=== PATIENT | female | born 1955 | race Caucasian/White ===

== ENCOUNTER 2020-06-18 05:44 | Emergency (ER) | payer MEDICARE, OTHER ==
[~2020-06-18 05:44] MED LIST: 3IN1 COMMODE XX; ACETAMINOPHEN325 MG PO; ASPIRIN CHEWABL81 MG PO; ATIVAN0.5 MG PO; CARBIDOPA-LEVO1 EAC6 PO; CELEXA20 MG PO; DITROPAN5 MG PO; FEOSOL325 MG PO; FLORANEX TABLE1 EACH PO; MAG-OXIDE 400M400 MG PO; MICON-GUARD 2% TOP; MIRAPEX0.25 MG PO; NAPROSYN375 MG PO; NIFEREX150 MG PO; NORCO 5-325 TA1 EACH PO; OSTERA TABLET1 EACH PO; OXY-IR 5MG5 MG PO; OXYBUTYNIN CHLOR5 M1 PO; OXYCODONE-ACET1 EAC1 PO; PANTOPRAZOLE SO40 MG PO; PERCOCET 5-3251 EACH PO; PREVACID30 M1 PO; SYNTHROID100 MCG PO; SYNTHROID75 MCG PO; XARELTO10 MG PO
[2020-06-18 06:36] LABS: BASOPHIL 0.4 % (0-2); EOSINOPHIL 2.4 % (0-7); HCT 38.8 % (37.0-47.0); HGB 12.5 g/dl (12.5-16.0); MCH 28.2 pg (25.0-31.0); MCHC 32.2 g/dL (32.0-36.0); MCV 87.4 fL (78.0-100.0); MONOCYTE 7.7 % (0-12); MPV 10.2 fL (6.0-9.5); NEUTROPHIL 66.1 % (41-80); NRBC 0; PLT 174 K/uL (150-400); RBC 4.44 M/uL (4.20-5.40); RDW 13.8 % (11.5-14.0); WBC 4.6 K/uL (4.0-10.5)
[2020-06-18 07:12] LABS: ALBUMIN 3.8 g/dL (3.4-5.0); ALKALINE PHOSHATASE 86 U/L (46-116); ALT 13 U/L (14-59); AST 21 U/L (15-37); BILIRUBIN - TOTAL 0.6 mg/dL (0.2-1.0); BUN 29 mg/dL (7-18); BUN/CREAT RATIO (CALC) 34.5 RATIO; CHLORIDE 107 mmol/L (98-107); CO2 (BICARBONATE) 29 mmol/L (21-32); CPK 149 U/L (26-192); CREATININE 0.84 mg/dL (0.51-0.95); GLOBULIN (CALCULATION) 2.9 g/dL; GLUCOSE 104 mg/dL (74-106); TOTAL PROTEIN 6.7 g/dL (6.4-8.2)
[2020-06-18 07:14] LABS: C-REACTIVE PROTEIN < 0.20 mg/dL (<=0.90)
== END 2020-06-18 09:49 | disposition home or self-care (01) ==
LOC: FER 05:44
PROVIDERS: Emergency Medicine Emergency Medical Services
DX: R06.02 Shortness of breath (principal); R20.0 Anesthesia of skin; G20 Parkinson's disease; E03.9 Hypothyroidism, unspecified; M79.662 Pain in left lower leg; M79.661 Pain in right lower leg; Z88.2 Allergy status to sulfonamides; Z79.899 Other long term (current) drug therapy
CPT/HCPCS: 36415; 71045; 80053; 82550; 83605; 84484; 85025; 85379; 86140; 93005; J3360

== ENCOUNTER 2021-02-15 14:11 | Emergency (ER) | payer MEDICARE, OTHER ==
[2021-02-15 17:10] LABS: BASOPHIL 0.6 % (0-2); EOSINOPHIL 1.2 % (0-7); HCT 39.3 % (37.0-47.0); HGB 12.4 g/dl (12.5-16.0); LYMPHOCYTE 16.1 % (15-48); MCH 27.6 pg (25.0-31.0); MCHC 31.6 g/dL (32.0-36.0); MCV 87.3 fL (78.0-100.0); MPV 10.5 fL (6.0-9.5); NEUTROPHIL 74.9 % (41-80); NRBC 0; PLT 168 K/uL (150-400); RDW 13.9 % (11.5-14.0)
[2021-02-15 17:29] LABS: BUN/CREAT RATIO (CALC) 35.8 RATIO; CREATININE 0.53 mg/dL (0.51-0.95); POTASSIUM 3.8 mmol/L (3.5-5.1)
[2021-02-15 18:26] LABS: BILIRUBIN 1+ mg/dL (NEGATIVE); BLOOD NEGATIVE Ery/uL (NEGATIVE); CLARITY CLEAR (CLEAR); COLOR YELLOW (YELLOW); GLUCOSE (U) NORMAL (NORMAL); LEUKOCYTES NEGATIVE Leu/uL (NEGATIVE); NITRITE NEGATIVE (NEGATIVE); PROTEIN TRACE (LOW) mg/dL (NEGATIVE); SPECIFIC GRAVITY >=1.030 (1.001-1.030); UROBILINOGEN 0.2 mg/dL (0.2-1.0)
[2021-02-15] MEDS ORDERED: MEDROL 4MG DOSEP4 MG PO (21:01)
[2021-02-15] MEDS ORDERED: CYCLOBENZAPRINE10 MG PO (21:01)
== END 2021-02-15 21:25 | disposition home or self-care (01) ==
LOC: FER 14:11
PROVIDERS: Nurse Practitioner Family
DX: M25.552 Pain in left hip (principal); R10.32 Left lower quadrant pain; R25.2 Cramp and spasm; G20 Parkinson's disease; Z88.2 Allergy status to sulfonamides
CPT/HCPCS: 36415; 73502; 73552; 80048; 81003; 85025; 96372; 99283; J1100; J1885

== ENCOUNTER 2021-04-04 12:44 | Emergency (ER) | payer MEDICARE, OTHER ==
[~2021-04-04 12:44] MED LIST changes: +CYCLOBENZAPRINE10 MG PO; +MEDROL 4MG DOSEP4 MG PO
[2021-04-04 14:57] LABS: BILIRUBIN NEGATIVE (NEGATIVE); BLOOD NEGATIVE Ery/uL (NEGATIVE); CLARITY CLEAR (CLEAR); COLOR YELLOW (YELLOW); GLUCOSE (U) TRACE mg/dL (NORMAL); LEUKOCYTES NEGATIVE Leu/uL (NEGATIVE); NITRITE NEGATIVE (NEGATIVE); PROTEIN TRACE (LOW) mg/dL (NEGATIVE); SPECIFIC GRAVITY 1.025 (1.001-1.030)
[2021-04-04 21:43] LABS: BASOPHIL 0.2 % (0-2); EOSINOPHIL 0.9 % (0-7); HCT 38.2 % (37.0-47.0); LYMPHOCYTE 14.6 % (15-48); MCH 27.7 pg (25.0-31.0); MCHC 31.4 g/dL (32.0-36.0); MCV 88.2 fL (78.0-100.0); MONOCYTE 8.4 % (0-12); MPV 9.9 fL (6.0-9.5); NEUTROPHIL 75.7 % (41-80); NRBC 0; PLT 152 K/uL (150-400); RBC 4.33 M/uL (4.20-5.40); RDW 14.4 % (11.5-14.0); WBC 4.5 K/uL (4.0-10.5)
[2021-04-04 22:03] LABS: BILIRUBIN - TOTAL 0.8 mg/dL (0.2-1.0); BUN/CREAT RATIO (CALC) 43.1 RATIO; CREATININE 0.51 mg/dL (0.51-0.95); GLOBULIN (CALCULATION) 2.7 g/dL; POTASSIUM 3.7 mmol/L (3.5-5.1); TOTAL PROTEIN 6.7 g/dL (6.4-8.2)
[2021-04-04] MEDS ORDERED: NORCO 5-325 TA1 EACH PO (23:45)
== END 2021-04-05 00:50 | disposition home or self-care (01) ==
LOC: FER 12:44
PROVIDERS: Emergency Medicine; Physician Assistant
DX: S52.514A Nondisplaced fracture of right radial styloid process, initial encounter for closed fracture (principal); R10.32 Left lower quadrant pain; G20 Parkinson's disease; Z53.29 Procedure and treatment not carried out because of patient's decision for other reasons; Z88.2 Allergy status to sulfonamides; Z79.899 Other long term (current) drug therapy; X58.XXXA Exposure to other specified factors, initial encounter; W01.0XXA Fall on same level from slipping, tripping and stumbling without subsequent striking against object, initial encounter
CPT/HCPCS: 36415; 73100; 80053; 81003; 85025

== ENCOUNTER 2021-05-07 20:47 | Emergency (ER) | payer MEDICARE, OTHER ==
[2021-05-07 22:50] LABS: BILIRUBIN NEGATIVE (NEGATIVE); BLOOD NEGATIVE Ery/uL (NEGATIVE); CLARITY CLEAR (CLEAR); COLOR YELLOW (YELLOW); GLUCOSE (U) NORMAL (NORMAL); LEUKOCYTES NEGATIVE Leu/uL (NEGATIVE); NITRITE NEGATIVE (NEGATIVE); PROTEIN NEGATIVE (NEGATIVE); SPECIFIC GRAVITY 1.025 (1.001-1.030); UROBILINOGEN 0.2 mg/dL (0.2-1.0); pH 6.5 (5.0-9.0)
== END 2021-05-08 00:38 | disposition home or self-care (01) ==
LOC: FER 20:47
PROVIDERS: Nurse Practitioner Family
DX: S39.91XA Unspecified injury of abdomen, initial encounter (principal); G20 Parkinson's disease; Z88.2 Allergy status to sulfonamides; X58.XXXA Exposure to other specified factors, initial encounter
CPT/HCPCS: 81003; 99284

== ENCOUNTER 2021-05-18 13:17 | Emergency (ER) | payer MEDICARE, OTHER ==
[2021-05-18 15:44] LABS: BILIRUBIN NEGATIVE (NEGATIVE); BLOOD NEGATIVE Ery/uL (NEGATIVE); CLARITY CLEAR (CLEAR); COLOR YELLOW (YELLOW); GLUCOSE (U) NORMAL (NORMAL); LEUKOCYTES NEGATIVE Leu/uL (NEGATIVE); NITRITE NEGATIVE (NEGATIVE); PROTEIN TRACE (LOW) mg/dL (NEGATIVE); SPECIFIC GRAVITY >=1.030 (1.001-1.030); UROBILINOGEN 0.2 mg/dL (0.2-1.0); pH 5.5 (5.0-9.0)
[2021-05-18 15:57] LABS: BACTERIA TRACE
[2021-05-18] MEDS ORDERED: MACROBID100 MG PO (17:20)
== END 2021-05-18 17:30 | disposition home or self-care (01) ==
LOC: FER 13:17
PROVIDERS: Physician Assistant
DX: R30.0 Dysuria (principal); G20 Parkinson's disease
CPT/HCPCS: 74019; 81001; 87088

== ENCOUNTER 2021-08-20 09:53 | Emergency (ER) | payer MEDICARE, OTHER ==
[~2021-08-20] VITALS: Ht 157.5 cm; Wt 54.4 kg
[~2021-08-20 09:53] MED LIST changes: +MACROBID100 MG PO
[2021-08-20 11:27] LABS: BASOPHIL 0.5 % (0-2); EOSINOPHIL 0.7 % (0-7); HCT 38.7 % (37.0-47.0); HGB 12.2 g/dl (12.5-16.0); LYMPHOCYTE 13.1 % (15-48); MCH 28.7 pg (25.0-31.0); MCHC 31.5 g/dL (32.0-36.0); MCV 91.1 fL (78.0-100.0); MONOCYTE 6.3 % (0-12); MPV 10.5 fL (6.0-9.5); NEUTROPHIL 78.9 % (41-80); NRBC 0; PLT 188 K/uL (150-400); RBC 4.25 M/uL (4.20-5.40); RDW 13.4 % (11.5-14.0); WBC 4.3 K/uL (4.0-10.5)
[2021-08-20 11:49] LABS: ALBUMIN 3.8 g/dL (3.4-5.0); BILIRUBIN - TOTAL 0.9 mg/dL (0.2-1.0); BUN/CREAT RATIO (CALC) 41.4 RATIO; CREATININE 0.58 mg/dL (0.51-0.95); GLOBULIN (CALCULATION) 2.7 g/dL; POTASSIUM 3.7 mmol/L (3.5-5.1); TOTAL PROTEIN 6.5 g/dL (6.4-8.2)
[2021-08-20 13:01] LABS: BILIRUBIN NEGATIVE (NEGATIVE); BLOOD NEGATIVE Ery/uL (NEGATIVE); CLARITY CLEAR (CLEAR); COLOR YELLOW (YELLOW); GLUCOSE (U) NORMAL (NORMAL); LEUKOCYTES NEGATIVE Leu/uL (NEGATIVE); NITRITE NEGATIVE (NEGATIVE); PROTEIN NEGATIVE (NEGATIVE); SPECIFIC GRAVITY >=1.030 (1.001-1.030); UROBILINOGEN 0.2 mg/dL (0.2-1.0)
[2021-08-20] MEDS ORDERED: NORCO 5-325 TA1 EACH PO (16:21)
== END 2021-08-20 16:48 | disposition home or self-care (01) ==
LOC: FER 09:53
PROVIDERS: Emergency Medicine
DX: M54.16 Radiculopathy, lumbar region (principal); Z88.2 Allergy status to sulfonamides
CPT/HCPCS: 36415; 80053; 81003; 84145; 85025; 87088; J1170; J2405; J7030